=== PATIENT | female | born 1975 | race Caucasian/White ===

== ENCOUNTER 2017-03-30 23:00 | Emergency (ER) | payer MEDICAID ==
[~2017-03-30] VITALS: Ht 172.7 cm; Wt 53.0 kg
[2017-03-30 23:05] VITALS: BP 131/83; PULSE 65; RESP 16; TEMP 98.4; O2SAT 100
[2017-03-30] MEDS ORDERED: IRON SUPPLEMENT (23:11)
[2017-03-30 23:45] LABS: AUTOMATED NEUTROPHIL # 3.8 TH/MM3 (1.8-7.7); BASOPHIL # 0.1 TH/MM3 (0-0.2); BASOPHIL % 1.3 % (0.0-2.0); EOSINOPHIL # 0.2 TH/MM3 (0-0.4); EOSINOPHIL % 3.2 % (0.0-4.0); HEMATOCRIT 34.6 % (35.0-46.0); HEMOGLOBIN 10.9 GM/DL (11.6-15.3); LYMPH % 31.5 % (9.0-44.0); LYMPHOCYTE # 2.2 TH/MM3 (1.0-4.8); MEAN CELL VOLUME 73.7 FL (80.0-100.0); MEAN CORPUSCULAR HEMOGLOBIN 23.3 PG (27.0-34.0); MEAN CORPUSCULAR HGB CONC 31.6 % (32.0-36.0); MEAN PLATELET VOLUME 7.2 FL (7.0-11.0); MONO % 10.1 % (0.0-8.0); MONOCYTE # 0.7 TH/MM3 (0-0.9); NEUT % 53.9 % (16.0-70.0); PLATELET COUNT 298 TH/MM3 (150-450); RED CELL DISTRIBUTION WIDTH 30.6 % (11.6-17.2)
[2017-03-31 00:01] LABS: ALBUMIN 3.2 GM/DL (3.4-5.0); ALT (GPT) 11 U/L (10-53); AST (GOT) 15 U/L (15-37); BICARBONATE 26.9 MEQ/L (21.0-32.0); BLOOD UREA NITROGEN 12 MG/DL (7-18); CALCIUM 8.2 MG/DL (8.5-10.1); CHLORIDE 111 MEQ/L (98-107); CREATININE 0.63 MG/DL (0.50-1.00); GLOMERULAR FILTRATION RATE 104 ML/MIN (>89); GLUCOSE,RANDOM 103 MG/DL (74-106); SODIUM (NA) 143 MEQ/L (136-145)
[2017-03-31 00:05] LABS: ALKALINE PHOSPHATASE 41 U/L (45-117); TOTAL BILIRUBIN ADULT 0.2 MG/DL (0.2-1.0); TOTAL PROTEIN 5.9 GM/DL (6.4-8.2); TROPONIN I LESS THAN 0.02 NG/ML (0.02-0.05)
[2017-03-31 00:38] VITALS: BP_SYST 102; BP_SYST 107; BP_SYST 112; BP_DIAS 63; BP_DIAS 70; BP_DIAS 76; RESP 16; RESP 49
[2017-03-31 00:56] LABS: ACANTHOCYTES 1+ (NORMAL); OVALOCYTES 1+ (NORMAL)
--- NOTE | 2017-03-31 00:56 | PD ---
HPI Chief Complaint: Syncope/Near-Syncope Time Seen by Provider: 23:13 Travel History International Travel<30 days: No Contact w/Intl Traveler<30days: No Traveled to known affect area: No History of Present Illness HPI Patient is a 41-year-old female who was at home with her children, Her son reports she became tired and she was talking and was not making sense, Then she seemed to dose off . This behavior would come and go over an hour. she was nodding off the son describes ..however when her arrived home she was back to her baseline.. She was normal. She talked to the on the phone and he said she did not sound normal , they come to the ER, In the ER she is awake alert and no signs or complaints at this time. Pt denies any etoh or drug intake today that could explain a nodding off like behavior, In the ER she is conversant no signs of this nodding off. observed for 3 hrs in ER and labs ekg done. Pt has not seen another Md for this problem , it has never occurred before. PFSH Past Medical History Anemia: Yes Cancer: No Cardiovascular Problems: Yes (Heart Murmur) Diabetes: No Diminished Hearing: No Genitourinary: No Musculoskeletal: No Neurologic: Yes (ARNOLD CHEAIRE MALFORMATION) Psychiatric: No Reproductive: No Tetanus Vaccination: Unknown Influenza Vaccination: No ?: Not LMP: 03/05/17 : 3 Para: 3 Past Surgical History Section: Yes (X3) Other Surgery: Yes (3 C-Sections) Social History Alcohol Use: Yes (RARE) Tobacco Use: Yes (PPD) Substance Use: No Allergies-Medications (Allergen,Severity, Reaction): Coded Allergies: No Known Allergies (Verified Adverse Reaction, Unknown, 03/30/17) Reported Meds & Prescriptions Reported Meds & Active Scripts Active Reported [Iron Supplement] Review of Systems Except as stated in HPI: all other systems reviewed are Neg Physical Exam Narrative GENERAL: normal tensive orthostatic vitals normal SKIN: Warm and dry. HEAD: Atraumatic. Normocephalic. EYES: Pupils equal and round. No scleral icterus. No injection or drainage. ENT: No nasal bleeding or discharge. Mucous membranes pink and moist. NECK: Trachea midline. No JVD. CARDIOVASCULAR: Regular rate and rhythm. RESPIRATORY: No accessory muscle use. Clear to auscultation. Breath sounds equal bilaterally. GASTROINTESTINAL: Abdomen soft, non-tender, nondistended. Hepatic and splenic margins not palpable. MUSCULOSKELETAL: Extremities without clubbing, cyanosis, or edema. No obvious deformities. NEUROLOGICAL: Awake and alert. No obvious cranial nerve deficits. Motor grossly within normal limits. Five out of 5 muscle strength in the arms and legs. Normal speech. PSYCHIATRIC: Appropriate mood and affect; insight and judgment normal. Data Data Last Documented VS Vital Signs Date Time Temp Pulse Resp B/P (MAP) Pulse Ox O2 Delivery O2 Flow Rate FiO2 03/31/17 01:09 68 16 112/75 (87) 100 03/30/17 23:05 98.4 Orders Orders Electrocardiogram (03/30/17 23:12) Complete Blood Count With Diff (03/30/17 23:12) Comprehensive Metabolic Panel (03/30/17 23:12) Iv Access Insert/Monitor (03/30/17 23:12) Ed Urine Pregnancytest Poc (03/30/17 23:12) Troponin I (03/30/17 23:20) Orthostatic Vital Signs (03/31/17 00:18) Ed Discharge Order (03/31/17 00:54) Labs Laboratory Tests Test 03/30/17 23:20 White Blood Count 7.0 TH/MM3 Red Blood Count 4.70 MIL/MM3 Hemoglobin 10.9 GM/DL Hematocrit 34.6 % Mean Corpuscular Volume 73.7 FL Mean Corpuscular Hemoglobin 23.3 PG Mean Corpuscular Hemoglobin Concent 31.6 % Red Cell Distribution Width 30.6 % Platelet Count 298 TH/MM3 Mean Platelet Volume 7.2 FL Neutrophils (%) (Auto) 53.9 % Lymphocytes (%) (Auto) 31.5 % Monocytes (%) (Auto) 10.1 % Eosinophils (%) (Auto) 3.2 % Basophils (%) (Auto) 1.3 % Neutrophils # (Auto) 3.8 TH/MM3 Lymphocytes # (Auto) 2.2 TH/MM3 Monocytes # (Auto) 0.7 TH/MM3 Eosinophils # (Auto) 0.2 TH/MM3 Basophils # (Auto) 0.1 TH/MM3 CBC Comment AUTO DIFF Differential Comment AUTO DIFF CONFIRMED Platelet Estimate NORMAL Platelet Morphology Comment NORMAL Ovalocytes 1+ Helmet Cells OCC Acanthocytes 1+ Blood Urea Nitrogen 12 MG/DL Creatinine 0.63 MG/DL Random Glucose 103 MG/DL Total Protein 5.9 GM/DL Albumin 3.2 GM/DL Calcium Level 8.2 MG/DL Alkaline Phosphatase 41 U/L Aspartate Amino Transf (AST/SGOT) 15 U/L Alanine Aminotransferase (ALT/SGPT) 11 U/L Total Bilirubin 0.2 MG/DL Sodium Level 143 MEQ/L Potassium Level 3.7 MEQ/L Chloride Level 111 MEQ/L Carbon Dioxide Level 26.9 MEQ/L Anion Gap 5 MEQ/L Estimat Glomerular Filtration Rate 104 ML/MIN Troponin I LESS THAN 0.02 NG/ML MDM Medical Decision Making Medical Screen Exam Complete: Yes Emergency Medical Condition: Yes Differential Diagnosis sleepiness from exhaustion vs opiate nodding off, vs etoh nodding off vs or TIA nodding off which I feel less likely to cause a global sleepiness Narrative Course ekg labs obsevation orthostaic vitals signs and d/c home follow up in AM with PCP Diagnosis Primary Impression: Sleepiness Patient Instructions: Altered Mental Status (ED), General Instructions Disposition: 01 DISCHARGE HOME Condition: Emiliano Finch MD Mar 31, 2017 00:56
[2017-03-31 00:59] LABS: HELMET CELLS OCC (NORMAL)
[2017-03-31 01:09] VITALS: BP 112/75
--- NOTE | 2017-03-31 13:24 | EKG ---
Date Performed: 03/30/2017 Time Performed: 23:17:10 PTAGE: 41 years EKG: Sinus rhythm Since the prior tracing, there has been no significant change NORMAL ECG PREVIOUS TRACING : 09/14/2015 19.37 DOCTOR: Marquis Ruvalcaba Interpretating Date/Time 03/31/2017 13:23:05
== END 2017-03-31 01:10 | disposition home or self-care (01) ==
LOC: NEPE 23:00
DX: R40.0 Somnolence (principal); R01.1 Cardiac murmur, unspecified; F17.200 Nicotine dependence, unspecified, uncomplicated
CPT/HCPCS: 80053; 84484; 84703; 85025; 93005